=== PATIENT | male | born 1960 | race Caucasian/White ===

== ENCOUNTER 2022-02-02 09:15 | Day surgery (SDC) | payer MEDICARE ==
[2022-02-02] VITALS (7 sets, daily range): BP systolic 124–144; BP diastolic 70–77
[~2022-02-02] VITALS: Ht 180.3 cm; Wt 93.5 kg
[~2022-02-02 09:15] MED LIST: ALFU10TA10 PO; ATOR10TA70 PO; CEVI30CA7 PO; ENAL10TA19 PO; INDOCYANINE GREEN 25 MG/10 ML VIAL IV ONE; ceFAZolin inj. 2,000 MG in dextrose 5%-water 100 ML IV ONE; famotidine 20mg tablet PO ONE; ringers solution, lacted 1,000 ML IV SCH
[2022-02-02] MEDS ORDERED: ondansetron/PF 4mg/2ml inj IV PRN (11:10)
[2022-02-02] MEDS ORDERED: morphine 4 MG/ML inj SYRINge IV PRN (11:10)
[2022-02-02] MEDS ORDERED: morphine 2 MG/ML inj. syringe IV PRN (11:10)
[2022-02-02] MEDS ORDERED: meperidine/PF 25mg/ml syringe IV PRN ×3 (11:10)
[2022-02-02] MEDS ORDERED: ringers solution, lacted 1,000 ML IV SCH (11:10)
[2022-02-02] MEDS ORDERED: proCHLORperazine 10 MG/2 ml inj IV PRN (11:10)
[2022-02-02] MEDS ORDERED: LIDOcaine 1% 30ml preserv. free vial ONE (11:37)
[2022-02-02] MEDS ORDERED: BUPIVAcaine 0.5% inj/PF 30 ML ONE (11:38)
[2022-02-02] MEDS ORDERED: sevoflurane 250ml liquid IH ONE (12:15)
[2022-02-02] MEDS ORDERED: neostigmine methylsulfate 1 MG/ML 10ml vial ONE (12:15)
[2022-02-02] MEDS ORDERED: glycopyrrolate 0.2mg/ml inj ONE (12:15)
[2022-02-02] MEDS ORDERED: midazolam 1 mg/ML 2ml injection ONE (12:28)
[2022-02-02] MEDS ORDERED: fentaNYL /PF 50mcg/ml 5ml ampule ONE (12:28)
[2022-02-02] MEDS ORDERED: rocuronium 10mg/ml inj IV ONE (12:45)
[2022-02-02] MEDS ORDERED: ondansetron/PF 4mg/2ml inj ONE (12:52)
[2022-02-02] MEDS ORDERED: dexamethasone sod phosphate 4mg/ml inj. ONE (12:52)
[2022-02-02] MEDS ORDERED: propofol inj 20 ML IV ONE (12:53)
[2022-02-02] MEDS ORDERED: LIDOcaine 2% (20mg/ml) 5ml vial ONE (12:53)
[2022-02-02] MEDS ORDERED: BUPIVAcaine 0.5% inj/PF 30 ml vial IJ ONE (12:59)
[2022-02-02] MEDS ORDERED: ketorolac trometh. 30mg/ml inj. ONE (13:26)
--- NOTE | 2022-02-02 13:40 | NUR ---
Received from OR via BED, accompanied by Anesthesiologist and report given by Anesthesiologist. PATIENT WAKING UP, NO S/S OF PAIN, V/S WNL, SCD ON, 20G TO LUE, ABDOMEN LAP SITE CLEAN W/ NO S/S OF COMPLICATIONS
[2022-02-02] MEDS ORDERED: oxyCODONE/APAP 5-325mg tablet PO PRN (14:05)
--- NOTE | 2022-02-02 14:20 | NUR ---
PATIENT A&OX4, DENIES PAIN, V/S WNL, SCD OFF, 20G TO LUE D/C, ABDOMEN LAP SITE CLEAN W/ NO S/S OF COMPLICATIONS. I HAVE REVIEWED D/C INSTRUCTIONS WITH PATIENT and they have verbalized understanding patient d/c home with all belongings and family gave transport home.
== END 2022-02-02 14:20 | disposition home or self-care (01) ==
LOC: PAS 09:15
PROVIDERS: ATTEND Surgery
DX: K80.10 Calculus of gallbladder with chronic cholecystitis without obstruction (principal); I10 Essential (primary) hypertension; K21.9 Gastro-esophageal reflux disease without esophagitis; E78.5 Hyperlipidemia, unspecified; Z85.89 Personal history of malignant neoplasm of other organs and systems; Z79.899 Other long term (current) drug therapy; Z87.891 Personal history of nicotine dependence; Z88.5 Allergy status to narcotic agent; Z88.6 Allergy status to analgesic agent; Z98.890 Other specified postprocedural states; Z87.442 Personal history of urinary calculi; Z90.89 Acquired absence of other organs; Z82.49 Family history of ischemic heart disease and other diseases of the circulatory system
CPT/HCPCS: 47563; 82948; 93005; J0690; J1100; J1885; J2250; J2405; J2704; J2710; J3010; J3490; J7030; J7060; J7120; S0020; Z7506; Z7508; Z7512; 88304; A4215; A4618; A7000